=== PATIENT | female | born 1975 | race Two or more races ===

== ENCOUNTER 2018-03-07 13:47 | Emergency (ER) | payer MEDICAID ==
[~2018-03-07] VITALS: Ht 162.6 cm; Wt 66.9 kg
[~2018-03-07 13:47] MED LIST: FERR325T50 PO; PREN-96 PO
[2018-03-07 14:01] VITALS: BP 107/45
== END 2018-03-07 16:56 | disposition home or self-care (01) ==
LOC: ER 13:47
DX: J02.9 Acute pharyngitis, unspecified (principal)